=== PATIENT | female | born 1960 | race Two or more races ===

== ENCOUNTER 2019-12-30 10:49 | Outpatient (RCR) | payer BC ==
--- NOTE | 2019-12-31 10:27 | Diagnostic Imaging Report ---
. Indication: Left leg pain, peripheral artery disease, nonhealing left leg ulcer Technique: Grayscale and duplex images of the left lower extremity arteries Comparison: none Findings: There is a patent stent in the proximal left common femoral artery. I flow velocities are seen in the common femoral artery, as well as within the distal external iliac artery., Latter demonstrating systolic peaks of up to there is 77 cm/s. Left common femoral artery demonstrates biphasic waveforms with sharp systolic peaks. Similar findings seen in the proximal superficial femoral and profunda femoral artery. In the mid superficial femoral artery, there is an area of flow velocity elevation, peak systolic velocity 168 cm/s, distal to which waveforms are dampened, borderline monophasic. Popliteal artery and tibial waveforms are monophasic. All 3 tibial vessels do appear to be patent, however. Impression: Evidence of multilevel stenoses, involving the distal external iliac, common femoral, and proximal superficial femoral arteries. Dampened distal waveforms suggest moderate ischemia at the level of the distal leg/foot. All 3 tibial vessels appear to be patent
== END 2020-01-18 | disposition home or self-care (01) ==
LOC: WCC 10:49
DX: L97.823 Non-pressure chronic ulcer of other part of left lower leg with necrosis of muscle (principal); I70.249 Atherosclerosis of native arteries of left leg with ulceration of unspecified site; E11.622 Type 2 diabetes mellitus with other skin ulcer; B20 Human immunodeficiency virus [HIV] disease; I10 Essential (primary) hypertension; Z87.891 Personal history of nicotine dependence; E11.40 Type 2 diabetes mellitus with diabetic neuropathy, unspecified; Z79.84 Long term (current) use of oral hypoglycemic drugs; Z79.899 Other long term (current) drug therapy; Z88.2 Allergy status to sulfonamides
CPT/HCPCS: 11042; 11043; 93926

== ENCOUNTER 2019-12-30 12:58 | Outpatient (CLI) | payer BC | END 2019-12-30 14:58 | disposition home or self-care (01) | LOC: VAS 12:58 | DX: I73.9 Peripheral vascular disease, unspecified (principal) | CPT/HCPCS: 87070; 87181; 87205; 93926 ==

== ENCOUNTER 2020-01-20 10:23 | Outpatient (RCR) | payer BC ==
[~2020-01-20] VITALS: Ht 154.9 cm; Wt 56.7 kg
[2020-01-29] MEDS ORDERED: Neosporin Oint 15gm TOPIC ONE (13:00)
== END 2020-02-18 | disposition home or self-care (01) ==
LOC: WCC 10:23
DX: L97.822 Non-pressure chronic ulcer of other part of left lower leg with fat layer exposed (principal); L97.821 Non-pressure chronic ulcer of other part of left lower leg limited to breakdown of skin; I70.249 Atherosclerosis of native arteries of left leg with ulceration of unspecified site; E11.622 Type 2 diabetes mellitus with other skin ulcer; B20 Human immunodeficiency virus [HIV] disease; Z88.2 Allergy status to sulfonamides; E11.40 Type 2 diabetes mellitus with diabetic neuropathy, unspecified; Z79.84 Long term (current) use of oral hypoglycemic drugs; Z79.899 Other long term (current) drug therapy
CPT/HCPCS: 11042

== ENCOUNTER 2020-02-24 11:24 | Outpatient (RCR) | payer BC | END 2020-03-19 | disposition home or self-care (01) | LOC: WCC 11:24 | DX: L97.822 Non-pressure chronic ulcer of other part of left lower leg with fat layer exposed (principal); L97.821 Non-pressure chronic ulcer of other part of left lower leg limited to breakdown of skin; I70.249 Atherosclerosis of native arteries of left leg with ulceration of unspecified site; E11.622 Type 2 diabetes mellitus with other skin ulcer; B20 Human immunodeficiency virus [HIV] disease; Z88.2 Allergy status to sulfonamides; I10 Essential (primary) hypertension; Z79.84 Long term (current) use of oral hypoglycemic drugs; Z79.899 Other long term (current) drug therapy | CPT/HCPCS: 15002 ==